=== PATIENT | male | born 1990 | race African-American/Black ===

== ENCOUNTER 2021-02-15 13:59 | Emergency (ER) | payer BC ==
[2021-02-15] MEDS ORDERED: Ventolin HFA Inhaler 60 PUFF INHALER ONE (15:03)
== END 2021-02-15 15:25 | disposition home or self-care (01) ==
LOC: CSHERS 13:59
DX: J45.909 Unspecified asthma, uncomplicated (principal)
CPT/HCPCS: 94640; 94664; 94760